=== PATIENT | male | born 1970 | race Caucasian/White ===

== ENCOUNTER 2019-02-23 18:32 | Inpatient (IN) ==
[2019-02-23] MEDS ORDERED: IOPAMIDOL 100 ML BOTTLE IV ONE (18:33)
[2019-02-23] MEDS ORDERED: PROMETHAZINE 25 MG/ML VIAL IV ONE ×2 (18:44→20:51)
[2019-02-23] MEDS ORDERED: 0.9 % SODIUM CHLORIDE 1,000 ML IV ONE ×2 (18:44→20:41)
[2019-02-23] MEDS ORDERED: ONDANSETRON 4 MG/2 ML VIAL IV ONE (19:43)
[2019-02-23 19:45] LABS: Basophils # (Auto) 0 K/mcL (0.0-0.3); Basophils % (Auto) 0.5 % (0.0-2.0); Eosinophils # (Auto) 0 K/mcL (0.0-0.7); Eosinophils % (Auto) 0.4 % (0.0-7.0); Granulocytes % (Auto) 80.4 % (38.0-78.0); Hematocrit 36.8 % (41.0-55.0); Hemoglobin 11.6 g/dL (13.5-16.5); Lymphocytes # (Auto) 0.8 K/mcL (1.5-4.8); Lymphocytes % (Auto) 10.3 % (15.5-49.0); Mean Cell Volume 73.9 fL (80.0-100.0); Mean Corpuscular HGB Conc 31.4 g/dL (31.0-36.0); Mean Platelet Volume 9.4 fL (7.4-10.4); Monocytes # (Auto) 0.7 K/mcL (0.1-0.9); Monocytes % (Auto) 8.4 % (1.0-12.0); Platelet Count 286 K/mcL (140-440); RBC 4.98 M/mcL (4.50-5.90); Red Cell Distribution Width 20.7 % (11.5-14.5); WBC 7.8 K/mcL (4.5-11.0)
[2019-02-23] MEDS: fentaNYL 100 MCG/2 ML VIAL IV PRN ×4 (19:50→20:56)
[2019-02-23 20:09] LABS: ALT/SGPT 17 U/l (0-40); AST/SGOT 25 U/l (0-37); Albumin 3.2 gm/dL (3.2-5.2); Albumin/Globulin Ratio 0.8 (1.0-2.3); Alkaline Phosphatase 106 U/L (39-117); Amylase 144 U/L (28-100); Bilirubin,Total 1.9 mg/dL (0.0-1.0); Blood Urea Nitrogen 9 mg/dl (6-20); Calcium 8.2 mg/dl (8.6-10.4); Carbon Dioxide 25 mmol/L (22-30); Chloride 97 mmol/L (96-108); Globulin 4.1 gm/dL (2.2-3.7); Glomerular Filtration Rate 87; Glucose 121 mg/dL (70-105); Lipase 454 U/L (7-60); Potassium 3.8 mmol/L (3.3-5.1); Sodium 135 mmol/L (133-145)
--- NOTE | 2019-02-23 20:18 | XRay Report ---
INDICATION: Abdominal pain, vomiting, diarrhea TECHNIQUE: AP chest x-ray,portable semiupright COMPARISON: CT scan dated 06/21/2018 FINDINGS:Left costophrenic angle is not included on this image. No acute or focal parenchymal infiltrate. No parenchymal mass. Heart size and vascularity are normal. No evidence for congestive heart failure. IMPRESSION: No acute abnormality Interpreted and Authenticated by: Kee Thornton 02/23/19
[2019-02-23 20:27] LABS: Erythrocyte Sedimentation Rate 17 mm/hr (0-15)
--- NOTE | 2019-02-23 20:54 | Emergency Department Note ---
Abdominal Pain HPI - General Chief Complaint: Abdominal Pain Stated Complaint: abd pain, vomiting, diarrhea Time Seen by Provider: 02/23/19 18:41 Source: patient, family Mode of arrival: ambulatory Limitations: no limitations - History of Present Illness HPI Narrative: 48-year-old male in ED with nausea for 4 days, vomiting and abdominal pain for the last 24 hours. Patient advises he has had no food or drink for the last 48 hours. And has not used alcohol in quite some time. Patient states he has sharp pain in his epigastric area which increases after vomiting. He also has crampy and stabbing pain which is intermittent when these spasms occur his pain jumps from a 6/10 to an 8/10. advises patient has had shortness of breath with exertion for the last 3-4 days and a 10 pound weight loss over the last week. Patient did have positive influenza 2 weeks ago, so that might be partial to the weight loss. Patient does have a history of pancreatitis. MD Complaint: abdominal pain Onset (ago): day(s) (1) Consistency: constant, intermittent (increases) Location: LUQ, RUQ, epigastric Severity scale (1-10): 8 Quality: cramping, stabbing, sharp Radiation: none Improves with: nothing Worsens with: vomiting Context: history of similar episodes Associated symptoms: Reports: nausea, vomiting, chills. Denies: diarrhea, fever, constipation, dysuria - Related Data Home Medications Medication Instructions Recorded Confirmed Venlafaxine HCl [Venlafaxine HCl 150 mg PO DAILY 11/27/18 02/24/19 ER] Docusate Sodium [Colace] 100 mg PO DAILY 02/23/19 02/24/19 Zolpidem [Ambien] 10 mg PO HS 02/23/19 02/24/19 Previous Rx's Medication Instructions Recorded ondansetron HCl 4 mg tablet 4 mg PO BID-TID PRN #30 tab 08/18/18 hydroxyzine HCl 50 mg tablet 50 mg PO BID PRN #60 tab 11/04/18 ropinirole 0.5 mg tablet 0.5 mg PO QHS #30 tab 11/16/18 Omeprazole 20 mg PO DAILY #90 tablet. 11/29/18 triamcinolone acetonide 0.5 % 1 applic TOPICAL BID #454 g 11/29/18 topical cream Allergies Allergy/AdvReac Type Severity Reaction Status Date / Time hydromorphone Allergy Mild itching Verified 02/23/19 18:32 hydrocodone AdvReac Mild Itching Verified 02/23/19 18:32 oxycodone AdvReac Mild Itching Verified 02/23/19 18:32 Review of Systems All systems ED: reviewed and negative except as stated. Abdominal Pain PMH - Past Medical History PMFSH Narrative: All Active Problems (Last Reviewed 02/23/19 @ 18:21 by Ludwin Rothman PA-C) Gastritis (Acute) Epigastric abdominal tenderness (Acute) Gastroenteritis (Acute) Pancreatitis (Chronic) Pulmonary embolism (Chronic) Pancreatic mass (Acute) Sprain of medial collateral ligament of right knee (Acute) Lateral epicondylitis of right elbow (Acute) Kidney stones (Chronic) Depression (Chronic) Anxiety (Chronic) Panic attack (Chronic) History of alcohol abuse (Chronic) History of essential hypertension (Chronic) Insomnia (Chronic) Generalized anxiety disorder (Chronic) Past Surgical History (Last Reviewed 02/23/19 @ 18:21 by Ludwin Rothman PA-C) H/O colonoscopy (Chronic) History of appendectomy (Chronic 07/01/18) Family History (Last Reviewed 02/23/19 @ 18:21 by Ludwin Rothman PA-C) Unknown No pertinent family history Medical history: Reports: kidney stones, pulmonary embolus, other (Pancreatitis) Psychiatric history: Reports: anxiety (With panic), panic disorder - Social History Smoking status: Never smoker Alcohol use: Reports: Heavy, Recent Physical Exam Limitations: no limitations General appearance: alert, in no apparent distress (pt does appear uncomfortable) Head: atraumatic, normocephalic, normal inspection, other (pt pale and slight jaundice) Eye: Present: normal appearance, PERRL, EOMI. Absent: conjunctival injection ENT: normal oropharynx, mucous membranes dry, TM's normal bilaterally, normal external ear exam Neck: Present: normal inspection, trachea midline. Absent: tenderness, lym phadenopathy Chest: Present: normal inspection, symmetric chest wall rise. Absent: tenderness Respiratory: Present: normal lung sounds bilaterally. Absent: respiratory distress, rales/crackles, wheezes Cardiovascular: Present: tachycardia. Absent: systolic murmur, diastolic murmur Abdominal: Present: soft, tenderness, normal bowel sounds. Absent: distention, guarding, rebound, rigidity Abdominal tenderness: Present: RUQ, LUQ, epigastrium, diffuse, moderate Extremities: Present: normal inspection. Absent: pedal edema Back: Present: normal inspection, CVA tenderness (R) Neurological: Present: alert, oriented X3, normal gait Psychiatric: Present: normal affect, normal mood. Absent: depressed, agitated, anxious, flat affect Skin: Present: warm, dry, intact, normal color. Absent: cool, diaphoretic Course Vital Signs Temperature 98.1 F 02/23/19 18:32 Pulse Rate 98 H 02/23/19 18:32 Respiratory Rate 22 02/23/19 18:32 Blood Pressure 146/104 02/23/19 18:32 Pulse Oximetry (%) 100 02/23/19 18:32 Temperature 98.2 F 02/24/19 06:55 Pulse Rate 93 H 02/24/19 04:08 Respiratory Rate 18 02/24/19 06:55 Blood Pressure 164/99 02/24/19 06:55 Pulse Oximetry (%) 100 02/24/19 08:00 Abdominal Pain - MDM Narrative Medical decision making narrative: Patient presented with vomiting and abdominal pain. Patient provided with total of 2 L normal saline, 25 mg IV promethazine provided which did help reduce nausea for short bit, 4 mg Zofran IV provided, total of 50 g fentanyl provided over an hour, an additional 25 mg promethazine provided his vomiting returned, pain is not controlled. Patient does have allergies to Dilaudid, hydrocodone, oxycodone he has used these in the past with hydroxyzine but still has severe itching which causes him a rash. WBC 7.8, RBC 4.98 Hgb 11.6 increased from 8.9 (in November), HCT 36.8, MCV 73.9, MCH 23.2, PT 13.0, INR 1, total bilirubin 1.9 increased from 0.9, AST 25 ALT 17 alkaline phosphatase 106, CRP 0.5, ESR 17, amylase 144 increased from 89, lipase 454 increased from 196. At the end of this providers shift, patient was still having uncontrolled nausea and vomiting. provided report as CT results were not back. advised to provide Reglan IV. - Lab Data Lab results reviewed: Yes I reviewed the patient's lab results. Result diagrams: 02/24/19 03:30 02/24/19 03:30 Lab Results 02/23/19 02/23/19 02/23/19 Range/Units 18:55 18:55 18:55 WBC 7.8 (4.5-11.0) K/mcL RBC 4.98 (4.50-5.90) M/mcL Hgb 11.6 L (13.5-16.5) g/dL Hct 36.8 L (41.0-55.0) % MCV 73.9 L (80.0-100.0) fL MCH 23.2 L (26.0-34.0) pg MCHC 31.4 (31.0-36.0) g/dL RDW 20.7 H (11.5-14.5) % Plt Count 286 (140-440) K/mcL MPV 9.4 (7.4-10.4) fL Gran % 80.4 H (38.0-78.0) % Lymph % (Auto) 10.3 L (15.5-49.0) % [place] % (Auto) 8.4 (1.0-12.0) % Eos % (Auto) 0.4 (0.0-7.0) % Baso % (Auto) 0.5 (0.0-2.0) % Gran # 6.3 (1.8-8.0) K/mcL Lymph # (Auto) 0.8 L (1.5-4.8) K/mcL [place] # (Auto) 0.7 (0.1-0.9) K/mcL Eos # (Auto) 0 (0.0-0.7) K/mcL Baso # (Auto) 0 (0.0-0.3) K/mcL ESR 17 H (0-15) mm/hr PT 13.0 (11.9-14.5) sec INR 1.0 (0.9-1.1) Sodium 135 (133-145) mmol/L Potassium 3.8 (3.3-5.1) mmol/L Chloride 97 (96-108) mmol/L Carbon Dioxide 25 (22-30) mmol/L Anion Gap 13.0 (8-16) BUN 9 (6-20) mg/dl Creatinine 1.0 (0.7-1.2) mg/dl GFR Calculation 87 Glucose 121 H (70-105) mg/dL Calcium 8.2 L (8.6-10.4) mg/dl Total Bilirubin 1.9 H (0.0-1.0) mg/dL Direct Bilirubin (0.0-0.3) mg/dL AST 25 (0-37) U/l ALT 17 (0-40) U/l Alkaline Phosphatase 106 (39-117) U/L Lactate Dehydrogenase (94-250) U/L C-Reactive Protein (0.0-0.8) mg/dl Total Protein 7.3 (5.9-8.4) gm/dL Albumin 3.2 (3.2-5.2) gm/dL Globulin 4.1 H (2.2-3.7) gm/dL Albumin/Globulin Ratio 0.8 L (1.0-2.3) Triglycerides (<150) mg/dl Amylase 144 H (28-100) U/L Lipase 454 H (7-60) U/L Ethyl Alcohol (<0.010) gm/dl 02/23/19 02/23/19 02/23/19 Range/Units 18:55 20:18 20:18 WBC (4.5-11.0) K/mcL RBC (4.50-5.90) M/mcL Hgb (13.5-16.5) g/dL Hct (41.0-55.0) % MCV (80.0-100.0) fL MCH (26.0-34.0) pg MCHC (31.0-36.0) g/dL RDW (11.5-14.5) % Plt Count (140-440) K/mcL MPV (7.4-10.4) fL Gran % (38.0-78.0) % Lymph % (Auto) (15.5-49.0) % [place] % (Auto) (1.0-12.0) % Eos % (Auto) (0.0-7.0) % Baso % (Auto) (0.0-2.0) % Gran # (1.8-8.0) K/mcL Lymph # (Auto) (1.5-4.8) K/mcL [place] # (Auto) (0.1-0.9) K/mcL Eos # (Auto) (0.0-0.7) K/mcL Baso # (Auto) (0.0-0.3) K/mcL ESR (0-15) mm/hr PT (11.9-14.5) sec INR (0.9-1.1) Sodium (133-145) mmol/L Potassium (3.3-5.1) mmol/L Chloride (96-108) mmol/L Carbon Dioxide (22-30) mmol/L Anion Gap (8-16) BUN (6-20) mg/dl Creatinine (0.7-1.2) mg/dl GFR Calculation Glucose (70-105) mg/dL Calcium (8.6-10.4) mg/dl Total Bilirubin (0.0-1.0) mg/dL Direct Bilirubin 0.4 H (0.0-0.3) mg/dL AST (0-37) U/l ALT (0-40) U/l Alkaline Phosphatase (39-117) U/L Lactate Dehydrogenase 226 (94-250) U/L C-Reactive Protein 0.5 (0.0-0.8) mg/dl Total Protein (5.9-8.4) gm/dL Albumin (3.2-5.2) gm/dL Globulin (2.2-3.7) gm/dL Albumin/Globulin Ratio (1.0-2.3) Triglycerides 70 (<150) mg/dl Amylase (28-100) U/L Lipase (7-60) U/L Ethyl Alcohol < 0.010 (<0.010) gm/dl - Radiology Data Radiology results reviewed: Yes I reviewed the patient's radiology results. Date of Service: 02/23/19 Procedure(s): CT abdomen pelvis w con Accession Number(s): [id number] CLINICAL INFORMATION: Pancreatitis COMPARISON: Previous examinations dated 08/16/2018 and 11/27/2018 Date of Service: 02/23/19 Procedure(s): XR chest 1V portable Accession Number(s): [id number] INDICATION: Abdominal pain, vomiting, diarrhea TECHNIQUE: AP chest x-ray,portable semiupright COMPARISON: CT scan dated 06/21/2018 FINDINGS:Left costophrenic angle is not included on this image. No acute or focal parenchymal infiltrate. No parenchymal mass. Heart size and vascularity are normal. No evidence for congestive heart failure. IMPRESSION: No acute abnormality CT Abd/pelvis with contrast: TECHNIQUE: Axial images were obtained through the abdomen and pelvis. Sagittally and coronally reformatted images. 80 mL contrast material injected intravenously. Oral contrast material was not given FINDINGS: Tiny adjacent cysts or pancreatitis. There is peripancreatic inflammatory change and minimal fluid. There is no pseudocyst. Pancreas is heterogeneous with areas of low density. Subtle changes of pancreatic necrosis are possible. Pancreatitis is slightly worse than on 11/27/2018 and worse than on 08/16/2018. There is no pancreatic abscess. No pancreatic gas. Lung bases are negative. No focal infiltrate or mass. There is no pleural fluid. No pericardial fluid. There is a small hiatal hernia. Liver is negative. There are surgical clips in the gallbladder fossa. Liver contour is smooth. No evidence for cirrhosis. There is no hepatic mass. Spleen is negative. No splenomegaly. Normal enhancement of splenic and portal veins. Negative adrenal glands. Kidneys are negative. No solid or cystic mass. No significant hydronephrosis. Patient has had a prior appendectomy. Colon is negative. No diverticulitis. No detectable colonic mass. No mechanical small bowel obstruction. No significant retroperitoneal or mesenteric adenopathy. There is no free pelvic fluid. There is no intra-abdominal abscess. There is no pneumoperitoneum, biliary or portal venous gas. Lumbar spine is negative. No compression deformities. Sacrum and pelvis are negative. Examination was initially interpreted by [facility] IMPRESSION: 1. Pancreatitis. Findings are somewhat worse than on 11/27/2018 2. Pancreas is edematous with areas of low density which may represent early pancreatic necrosis. No pseudocyst or focal abscess Disposition Pt seen by CUSTOMER CARE MANAGER/PA only: No (Scheduling Specialist) Clinical Impression: Pancreatitis Qualifiers: Chronicity: chronic Pancreatitis type: alcohol induced Qualified Code(s): K86.0 - Alcohol-induced chronic pancreatitis Disposition: Xfer As Inpt ([facility]) Condition: Good Time of Disposition: 10:01
[2019-02-23] MEDS ORDERED: LACTATED RINGERS 1,000 ML IV ONE (21:59)
[2019-02-23] MEDS ORDERED: METOCLOPRAMIDE 10 MG/2 ML VIAL IV ONE (22:21)
[2019-02-23 22:46] LABS: Alcohol, Blood < 10.0 mg/dL (<10); Alcohol,Blood < 0.010 gm/dl (<0.010)
[2019-02-23 23:37] LABS: Bilirubin,Direct 0.4 mg/dL (0.0-0.3)
--- NOTE | 2019-02-23 23:37 | Internal Med History&Physical ---
Medical - H&P: HPI Patient information: Note initiated : 02/23/19 at 11:35 pm Service Date, if different from initiated Date: [] Patient: Cy Joel 48 y/o M admitted on for abd pain, vomiting, diarrhea. Chief Complaint: [] History of present illness: Mr. Joel is a 48 year old M 48-year-old male with a history of pancreatitis related to alcohol use presents with 4-day history of nausea vomiting abdominal pain. Patient states last alcohol he believes was . He used to be a heavy drinker but is cut down. He usually has at least 4 bottles of wine a week still. States pain is sharp epigastric. States that had not had any food or drink for the past day or so. Pain is nonradiating at this time. In the ED labs were done including a lipase that was elevated. Has chills denies fever CT abdomen showing showing pancreatitis. Signs stable at this time. Initial heart rate noted to be 98 but subsequent rates after or 60s to 70s. Afebrile History of influenza 2 weeks ago. Review of Systems: Pertinent positives as above. Denies headache/fever/chest pain/cough/dyspn ea/diarrhea. Remaining 10 point review of systems reviewed negative Medical - H&P: PMH Medical history: Past medical history: pancreatitis (Chronic) Pulmonary embolism (Chronic) Pancreatic mass (Acute) Sprain of medial collateral ligament of right knee (Acute) Lateral epicondylitis of right elbow (Acute) Kidney stones (Chronic) Depression (Chronic) Anxiety (Chronic) Panic attack (Chronic) History of alcohol abuse (Chronic) History of essential hypertension (Chronic) Insomnia (Chronic) Generalized anxiety disorder (Chronic) Medical history: Reports: kidney stones, pulmonary embolus, other (Pancreatitis) Past Surgical History (Last Reviewed 02/23/19 @ 18:21 by Ludwin Rothman PA-C) History of appendectomy (Chronic 07/01/18) Cholecystectomy Family History (Last Reviewed 02/23/19 @ 18:21 by Ludwin Rothman PA-C) Mother is healthy Father had COPD Social history: States used to be a heavy drinker, now about 4 bottles of wine a week Denies tobacco use Lives with family Medical - H&P: Meds Home Medications Medication Instructions Recorded Confirmed Type ondansetron HCl 4 mg tablet 4 mg PO BID-TID PRN #30 tab 08/18/18 02/23/19 Rx hydroxyzine HCl 50 mg tablet 50 mg PO BID PRN #60 tab 11/04/18 02/23/19 Rx ropinirole 0.5 mg tablet 0.5 mg PO QHS #30 tab 11/16/18 02/23/19 Rx Venlafaxine HCl [Venlafaxine HCl 150 mg PO HS 11/27/18 02/23/19 History ER] Omeprazole 20 mg PO DAILY #90 tablet. 11/29/18 02/23/19 Rx triamcinolone acetonide 0.5 % 1 applic TOPICAL BID #454 g 11/29/18 02/23/19 Rx topical cream Docusate Sodium [Colace] 100 mg PO DAILY 02/23/19 02/23/19 History Zolpidem [Ambien] 10 mg PO DAILY 02/23/19 02/23/19 History Allergies Allergy/AdvReac Type Severity Reaction Status Date / Time hydromorphone Allergy Mild itching Verified 02/23/19 18:32 hydrocodone AdvReac Mild Itching Verified 02/23/19 18:32 oxycodone AdvReac Mild Itching Verified 02/23/19 18:32 Medical - H&P: Exam - Constitutional Vitals: Temp Pulse Resp BP Pulse Ox 98.1 F 78 18 162/92 98 02/23/19 18:32 02/23/19 23:29 02/23/19 20:12 02/23/19 23:01 02/23/19 23:29 Exam: General: Alert, Awake, mild physical to distress from pain, obese Eyes/N/T: EOMI, PEERL, DMM Head/Neck: neck supple, normocephalic atraumatic CV: RRR, No murmurs, normal s1/s2 Pulm: Clear b/l, no wheezing/rhonchi/rales Abd: soft, TTP epigastrium, decreased BS Ext: no clubbing/cyanosis/edema Neuro: Alert, no focal deficits, moves all extremities, CN 2-12 grossly intact, symmetrical strength b/l upper/lower, sensations intact b/l upper/lower Skin: warm/dry Medical - H&P: Reslt - Labs CBC & Chem 7: 02/23/19 18:55 02/23/19 18:55 Labs: Short CBC 02/23/19 Range/Units 18:55 WBC 7.8 (4.5-11.0) K/mcL Hgb 11.6 L (13.5-16.5) g/dL Hct 36.8 L (41.0-55.0) % Plt Count 286 (140-440) K/mcL BMP 02/23/19 18:55 Sodium 135 Potassium 3.8 Chloride 97 Carbon Dioxide 25 BUN 9 Creatinine 1.0 Glucose 121 H Calcium 8.2 L Liver Function 02/23/19 Range/Units 18:55 Total Bilirubin 1.9 H (0.0-1.0) mg/dL AST 25 (0-37) U/l ALT 17 (0-40) U/l Alkaline Phosphatase 106 (39-117) U/L Albumin 3.2 (3.2-5.2) gm/dL Medical - H&P: A/P - Narrative A/P Narrative: A: *Acute pancreatitis: -h/o cholecystectomy *Alcohol abuse : *HTN: *JENNY: *Obesity: *GERD: *Depression/anxiety with panic attacks: P: -IVF's -N.p.o., bowel rest tonight -Pain control, antiemetics -We will check triglyceride -Restart home iron supplementation when oral intake able -Monitor for signs of deterioration including leukocytosis fevers and other clinical signs of infection, would then need to repeat CAT scan looking for necrosis -ppx: Lovenox full code
[2019-02-24] MEDS ORDERED: fentaNYL 100 MCG/2 ML VIAL IV PRN (01:09)
[2019-02-24] MEDS ORDERED: diphenhydrAMINE 50 MG/ML VIAL ONE ×2 (01:26→05:26)
[2019-02-24] MEDS ORDERED: ONDANSETRON 4 MG/2 ML VIAL ONE ×2 (01:26→05:25)
[2019-02-24] MEDS ORDERED: HYDROmorphone 2 MG/ML VIAL ONE ×2 (01:26→05:25)
[2019-02-24] MEDS: 0.9 % SODIUM CHLORIDE 1,000 ML IV SCH ×6 (01:27→21:34)
[2019-02-24 04:07] LABS: Amphetamine Screen,Urine NONE DETECTED (NONDETECTED); Barbiturate Screen,Urine NONE DETECTED (NONDETECTED); Benzodiazepines Screen,Urine NONE DETECTED (NONDETECTED); Cannabinoid Screen,Urine SUSPECT POSITIVE (NONDETECTED); Cocaine Screen,Urine NONE DETECTED (NONDETECTED); Opiate Screen,Urine NONE DETECTED (NONDETECTED); Oxycodone, Urine Screen NONE DETECTED (NONDETECTED); Phencyclidine Screen,Urine NONE DETECTED (NONDETECTED)
[2019-02-24 04:09] LABS: Appearance,Urine CLEAR; Bilirubin,Urine NEG (NEG); Color,Urine YELLOW; Culture Indicated,Urine NO; Glucose,Urine (UA) NEGATIVE (NEG); Ketones,Urine 20 mg/dL (NEG); Leukocyte Esterase,Urine NEG /uL (NEG); Nitrate,Urine NEG (NEG); Protein,Urine NEG (NEG); Specific Gravity,Urine 1.057 (1.000-1.035); Urine Blood NEG mg/dL (<0.03); Urobilinogen,Urine NEG (NEG)
[2019-02-24 05:34] LABS: Basophils # (Auto) 0 K/mcL (0.0-0.3); Basophils % (Auto) 0.1 % (0.0-2.0); Eosinophils # (Auto) 0 K/mcL (0.0-0.7); Eosinophils % (Auto) 0 % (0.0-7.0); Granulocytes % (Auto) 79.9 % (38.0-78.0); Hemoglobin 9.7 g/dL (13.5-16.5); Lymphocytes # (Auto) 0.8 K/mcL (1.5-4.8); Lymphocytes % (Auto) 9.9 % (15.5-49.0); Mean Cell Volume 75.4 fL (80.0-100.0); Mean Corpuscular HGB Conc 31.3 g/dL (31.0-36.0); Mean Platelet Volume 9.8 fL (7.4-10.4); Monocytes # (Auto) 0.8 K/mcL (0.1-0.9); Monocytes % (Auto) 10.1 % (1.0-12.0); Platelet Count 209 K/mcL (140-440); RBC 4.11 M/mcL (4.50-5.90); Red Cell Distribution Width 22.7 % (11.5-14.5); WBC 7.9 K/mcL (4.5-11.0)
--- NOTE | 2019-02-24 06:09 | Cat Scan Report ---
CLINICAL INFORMATION: Pancreatitis COMPARISON: Previous examinations dated 08/16/2018 and 11/27/2018 TECHNIQUE: Axial images were obtained through the abdomen and pelvis. Sagittally and coronally reformatted images. 80 mL contrast material injected intravenously. Oral contrast material was not given FINDINGS: Tiny adjacent cysts or pancreatitis. There is peripancreatic inflammatory change and minimal fluid. There is no pseudocyst. Pancreas is heterogeneous with areas of low density. Subtle changes of pancreatic necrosis are possible. Pancreatitis is slightly worse than on 11/27/2018 and worse than on 08/16/2018. There is no pancreatic abscess. No pancreatic gas. Lung bases are negative. No focal infiltrate or mass. There is no pleural fluid. No pericardial fluid. There is a small hiatal hernia. Liver is negative. There are surgical clips in the gallbladder fossa. Liver contour is smooth. No evidence for cirrhosis. There is no hepatic mass. Spleen is negative. No splenomegaly. Normal enhancement of splenic and portal veins. Negative adrenal glands. Kidneys are negative. No solid or cystic mass. No significant hydronephrosis. Patient has had a prior appendectomy. Colon is negative. No diverticulitis. No detectable colonic mass. No mechanical small bowel obstruction. No significant retroperitoneal or mesenteric adenopathy. There is no free pelvic fluid. There is no intra-abdominal abscess. There is no pneumoperitoneum, biliary or portal venous gas. Lumbar spine is negative. No compression deformities. Sacrum and pelvis are negative. Examination was initially interpreted by [facility] IMPRESSION: 1. Pancreatitis. Findings are somewhat worse than on 11/27/2018 2. Pancreas is edematous with areas of low density which may represent early pancreatic necrosis. No pseudocyst or focal abscess The exam was performed using radiation dose optimization techniques including, but not limited to, automated exposure control, adjustment of the mA and/or kV according to patient size and use of iterative reconstruction technique. Interpreted and Authenticated by: Kee Thornton 02/24/19
[2019-02-24] MEDS ORDERED: POTASSIUM CHLORIDE 20 MEQ TABLET PO PRN ×2 (06:55)
[2019-02-24] MEDS ORDERED: MAGNESIUM SULFATE 2 GM/50 ML BAG IV PRN (06:55)
[2019-02-24] MEDS ORDERED: IPRATROPIUM/ALBUTEROL 3 ML AMPUL.NEB NEB PRN (06:55)
[2019-02-24] MEDS ORDERED: PROMETHAZINE 12.5 MG SUPP.RECT PR PRN (06:55)
[2019-02-24] MEDS ORDERED: PROCHLORPERAZINE 10 MG/2 ML VIAL IV PRN (06:55)
[2019-02-24] MEDS ORDERED: ONDANSETRON 4 MG/2 ML VIAL IV PRN (06:55)
[2019-02-24] MEDS ORDERED: POTASSIUM CHLORIDE 40 MEQ in DEXTROSE 5% IN WATER 500 ML IV PRN (06:55)
[2019-02-24] MEDS ORDERED: ACETAMINOPHEN 325 MG TABLET PO PRN (06:55)
--- NOTE | 2019-02-24 06:55 | Internal Med Progress Note ---
Medical - PN: Subj Patient information: Note initiated : 02/24/19 at 6:49 am Service Date, if different from initiated Date: [] Patient: Cy Joel a 48 y/o M admitted on 02/24/19 for abd pain, vomiting, diarrhea. Chief Complaint: [] Interval history: Mr. Joel is a 48 year old M 48-year-old male with a history of pancreatitis related to alcohol use presents with 4-day history of nausea vomiting abdominal pain. Patient states last alcohol he believes was . He used to be a heavy drinker but is cut down. He usually has at least 4 bottles of wine a week still. States pain is sharp epigastric. States that had not had any food or drink for the past day or so. Pain is nonradiating at this time. In the ED labs were done including a lipase that was elevated. Has chills denies fever CT abdomen showing showing pancreatitis. Signs stable at this time. Initial heart rate noted to be 98 but subsequent rates after or 60s to 70s. Afebrile History of influenza 2 weeks ago. 02/24 Was able to get some sleep last night. Abdominal pain present but much improved from last night. Has some nausea and some retching overnight. Nothing this morning. No other complaints Review of Systems: denies headache/fever/chills/vomiting/chest pain/cough/dyspnea/diarrhea. Otherwise see above. - Constitutional Vitals: Vital Signs Temp Pulse Resp BP Pulse Ox 99.7 F H 93 H 20 161/96 96 02/24/19 03:49 02/24/19 04:08 02/24/19 03:49 02/24/19 03:49 02/24/19 04:08 Period Temp Pulse Resp BP Sys/Tracey Pulse Ox Last 24 Hr 98.1 F-99.7 F 60-98 16-22 143-169/81-104 90-100 Intake and Output 02/23/19 02/24/19 02/24/19 21:59 05:59 13:59 Intake Total 1999 1999 Output Total 325 Balance 1999 1675 Weight 107.955 kg 110.314 kg Intake & Output: Intake & Output 02/23/19 02/24/19 02/24/19 21:59 05:59 13:59 Intake Total 1999 1999 Output Total 325 Balance 1999 1675 Weight 107.955 kg 110.314 kg Intake: IV 1999 1999 Sodium Chloride 0.9% 1,000 ml @ 2000 1000 250 mls/hr IV .Q4H [facility] Rx#: [id number] Lactated Ringers 1,000 ml @ 1000 Wide Open IV BOLUS ONE Rx#: [id number] Output: Void Amount 325 Other: Urine Color Dark Yellow Urine Odor Strong Exam: General: Alert, Awake, no acute distress, obese Eyes/N/T: EOMI, Head/Neck: neck supple, CV: RRR, No murmurs, Pulm: Clear b/l, no wheezing/rhonchi/rales Abd: soft, TTP epigastrium, + BS Ext: no clubbing/cyanosis/edema Neuro: Alert, no focal deficits, moves all extremities, Skin: warm/dry Medical - PN: Obj Da - Labs CBC & Chem 7: 02/24/19 03:30 02/24/19 03:30 Labs: Abnormal Lab Results 02/24/19 02/24/19 02/24/19 03:30 03:00 03:00 RBC 4.11 L Hgb 9.7 L Hct 31.0 L MCV 75.4 L MCH 23.6 L RDW 22.7 H Gran % 79.9 H Lymph % (Auto) 9.9 L Lymph # (Auto) 0.8 L ESR Glucose Calcium Total Bilirubin Direct Bilirubin Globulin Albumin/Globulin Ratio Amylase Lipase Ur Specific [place] 1.057 H Urine Ketones 20 A U Marijuana (THC) Screen Suspect positive A 02/23/19 02/23/19 02/23/19 20:18 18:55 18:55 RBC Hgb 11.6 L Hct 36.8 L MCV 73.9 L MCH 23.2 L RDW 20.7 H Gran % 80.4 H Lymph % (Auto) 10.3 L Lymph # (Auto) 0.8 L ESR 17 H Glucose 121 H Calcium 8.2 L Total Bilirubin 1.9 H Direct Bilirubin 0.4 H Globulin 4.1 H Albumin/Globulin Ratio 0.8 L Amylase 144 H Lipase 454 H Ur Specific [place] Urine Ketones U Marijuana (THC) Screen Meds: Medications Diphenhydramine HCl (Benadryl) 25 mg IV Q4HP PRN PRN Reason: Allergic Symptoms Enoxaparin Sodium (Lovenox) 40 mg SQ ONCE ONE Stop: 02/24/19 09:01 Famotidine (Pepcid) 20 mg IV Q12 [facility] Fentanyl (Sublimaze) 25 - 50 mcg IV Q2HP PRN PRN Reason: PAIN LEVEL > 6 Hydromorphone HCl (Dilaudid) 0.5 - 1 mg IV Q2HP PRN PRN Reason: PAIN LEVEL > 6 Sodium Chloride (Sodium Chloride 0.9%) 1,000 mls @ 250 mls/hr IV .Q4H [facility] Last Admin: 02/24/19 05:38 Dose: 250 mls/hr Documented by: Ondansetron HCl (Zofran) 4 mg IV Q4HP PRN PRN Reason: Nausea And Vomiting Medical - PN: A/P - Time Spent With Patient Total time spent is greater than 50% in coordination of care (as documented) at patient's floor/unit and/or counseling patient: - Narrative A/P Narrative: A: *Acute pancreatitis: improving -h/o cholecystectomy -CT a/p with pancreatitis and possible small area of early necrosis *Alcohol abuse: *HTN: *JENNY: Has not been taking his home iron supplementation *Obesity: *GERD: *Depression/anxiety with panic attacks: P: -IVF's -start clears for lunch -Pain control, antiemetics -Monitor for signs of deterioration including leukocytosis fevers and other clinical signs of infection, would then need to repeat CAT scan looking for necrosis -switch his home omeprazole to pepcid given class 1b risk for pancreatitis with omeprazole -Alcohol cessation counseling -Restart home iron supplementation when oral intake able -CIWA -ppx: Lovenox full code Medical - PN: Qual - VTE Deep Vein Thrombosis/Pulmonary Embolism Present on Admission: No
[2019-02-24 07:07] LABS: ALT/SGPT 12 U/l (0-40); AST/SGOT 33 U/l (0-37); Albumin 2.5 gm/dL (3.2-5.2); Albumin/Globulin Ratio 0.7 (1.0-2.3); Alkaline Phosphatase 88 U/L (39-117); Bilirubin,Direct 0.3 mg/dL (0.0-0.3); Bilirubin,Total 1.2 mg/dL (0.0-1.0); Blood Urea Nitrogen 7 mg/dl (6-20); Calcium 7.4 mg/dl (8.6-10.4); Carbon Dioxide 22 mmol/L (22-30); Chloride 104 mmol/L (96-108); Globulin 3.6 gm/dL (2.2-3.7); Glomerular Filtration Rate 104; Glucose 103 mg/dL (70-105); Lactate Dehydrogenase 260 U/L (94-250); Lipase 251 U/L (7-60); Magnesium 1.8 mg/dL (1.6-2.5); Phosphorous 4.1 mg/dL (2.7-4.5); Potassium 4.2 mmol/L (3.3-5.1); Sodium 137 mmol/L (133-145); Triglycerides 52 mg/dl (<150); Uric Acid 4.5 mg/dL (2.5-8.0)
[2019-02-24] MEDS ORDERED: ENOXAPARIN 40 MG/0.4 ML SYRINGE SQ ONE (09:00)
[2019-02-24] MEDS: FAMOTIDINE/PF 20 MG/2 ML VIAL IV SCH ×2 (09:41→22:48)
[2019-02-24] MEDS: diphenhydrAMINE 50 MG/ML VIAL IV PRN ×3 (09:41→22:50)
[2019-02-24] MEDS: FOLIC ACID 1 MG TABLET PO SCH (09:41)
[2019-02-24] MEDS: VENLAFAXINE 150 MG CAP.XL.24H PO SCH (09:42)
[2019-02-24] MEDS: HYDROmorphone 2 MG/ML VIAL IV PRN ×4 (09:45→22:50)
[2019-02-24] MEDS: ONDANSETRON 4 MG/2 ML VIAL IV PRN ×4 (09:49→22:50)
[2019-02-24] MEDS: THIAMINE 100 MG in 0.9 % SODIUM CHLORIDE 50 ML IV SCH (09:56)
[2019-02-24] MEDS: 0.9 % SODIUM CHLORIDE 10 ML SYRINGE IV SCH ×2 (14:24→22:49)
[2019-02-24] MEDS: TRIAMCINOLONE CRM 0.5% TUBE 15GM TOPICAL SCH ×2 (16:02→22:48)
[2019-02-24] MEDS ORDERED: ENALAPRILAT 1.25 MG/ML VIAL IV PRN (17:58)
[2019-02-24] MEDS: LABETALOL 5 MG/ML ML IV PRN (18:55)
[2019-02-24] MEDS ORDERED: rOPINIRole 0.25 MG TABLET PO SCH (21:00)
[2019-02-24] MEDS ORDERED: ZOLPIDEM 5 MG TABLET PO SCH (21:00)
[2019-02-25] MEDS: LABETALOL 5 MG/ML ML IV PRN (04:07)
[2019-02-25] MEDS: ONDANSETRON 4 MG/2 ML VIAL IV PRN ×2 (04:08→22:04)
[2019-02-25] MEDS: HYDROmorphone 2 MG/ML VIAL IV PRN ×4 (04:08→22:04)
[2019-02-25] MEDS: diphenhydrAMINE 50 MG/ML VIAL IV PRN ×3 (04:09→21:28)
[2019-02-25] MEDS: 0.9 % SODIUM CHLORIDE 10 ML SYRINGE IV SCH ×3 (05:54→21:29)
[2019-02-25 06:42] LABS: Basophils # (Auto) 0 K/mcL (0.0-0.3); Basophils % (Auto) 0.7 % (0.0-2.0); Eosinophils # (Auto) 0.2 K/mcL (0.0-0.7); Eosinophils % (Auto) 3.4 % (0.0-7.0); Granulocytes % (Auto) 58.6 % (38.0-78.0); Hematocrit 29.8 % (41.0-55.0); Hemoglobin 9.6 g/dL (13.5-16.5); Lymphocytes # (Auto) 1.5 K/mcL (1.5-4.8); Lymphocytes % (Auto) 24.4 % (15.5-49.0); Mean Cell Volume 74.3 fL (80.0-100.0); Mean Platelet Volume 10.6 fL (7.4-10.4); Monocytes # (Auto) 0.8 K/mcL (0.1-0.9); Monocytes % (Auto) 12.9 % (1.0-12.0); Platelet Count 183 K/mcL (140-440); RBC 4.02 M/mcL (4.50-5.90); Red Cell Distribution Width 20.6 % (11.5-14.5); WBC 6.1 K/mcL (4.5-11.0)
[2019-02-25 06:44] LABS: ALT/SGPT 12 U/l (0-40); AST/SGOT 24 U/l (0-37); Albumin 2.7 gm/dL (3.2-5.2); Albumin/Globulin Ratio 0.8 (1.0-2.3); Alkaline Phosphatase 83 U/L (39-117); Bilirubin,Direct 0.3 mg/dL (0.0-0.3); Bilirubin,Total 0.9 mg/dL (0.0-1.0); Blood Urea Nitrogen 5 mg/dl (6-20); Calcium 7.6 mg/dl (8.6-10.4); Carbon Dioxide 20 mmol/L (22-30); Chloride 104 mmol/L (96-108); Globulin 3.5 gm/dL (2.2-3.7); Glomerular Filtration Rate 110; Glucose 76 mg/dL (70-105); Lactate Dehydrogenase 254 U/L (94-250); Lipase 153 U/L (7-60); Magnesium 1.8 mg/dL (1.6-2.5); Potassium 3.7 mmol/L (3.3-5.1); Sodium 138 mmol/L (133-145); Triglycerides 68 mg/dl (<150); Uric Acid 3.8 mg/dL (2.5-8.0)
[2019-02-25] MEDS: 0.9 % SODIUM CHLORIDE 1,000 ML IV SCH (07:07)
--- NOTE | 2019-02-25 08:03 | Internal Med Progress Note ---
Medical - PN: Subj Patient information: Note initiated : 02/25/19 at 7:59 am Service Date, if different from initiated Date: [] Patient: Cy Joel 48 y/o M admitted on 02/24/19 for abd pain, vomiting, diarrhea. Chief Complaint: [] Interval history: Mr. Joel is a 48 year old M 48-year-old male with a history of pancreatitis related to alcohol use presents with 4-day history of nausea vomiting abdominal pain. Patient states last alcohol he believes was . He used to be a heavy drinker but is cut down. He usually has at least 4 bottles of wine a week still. States pain is sharp epigastric. States that had not had any food or drink for the past day or so. Pain is nonradiating at this time. In the ED labs were done including a lipase that was elevated. Has chills denies fever CT abdomen showing showing pancreatitis. Signs stable at this time. Initial heart rate noted to be 98 but subsequent rates after or 60s to 70s. Afebrile History of influenza 2 weeks ago. 02/24 Was able to get some sleep last night. Abdominal pain present but much improved from last night. Has some nausea and some retching overnight. Nothing this morning. No other complaints 02/25 Slept well last night. Abdominal pain is continued to improve. It did get a little worse with breakfast this morning on clear liquids and then improved thereafter. No nausea this morning. Does have mild headache. 7 elevated blood pressures while here likely combination of pain and aggressive IV fluids. However he did say he is on atenolol in the past but then went off as his blood pressure was fine. His blood pressure typically is in 130s. Review of Systems: denies fever/chills/vomiting/chest pain/cough/dyspnea/diarrhea. Otherwise see above. - Constitutional Vitals: Vital Signs Temp Pulse Resp BP Pulse Ox 99 F 73 18 148/94 99 02/24/19 18:45 02/24/19 23:52 02/24/19 18:45 02/24/19 23:52 02/24/19 23:52 Period Temp Pulse Resp BP Sys/Tracey Pulse Ox Last 24 Hr 98.7 F-99.6 F 59-85 16-20 144-172/85-103 95-100 Intake and Output 02/24/19 02/25/19 02/25/19 21:59 05:59 13:59 Intake Total 2247 90 953 Output Total 625 Balance 1622 90 953 Weight 114.305 kg Intake & Output: Intake & Output 02/24/19 02/25/19 02/25/19 21:59 05:59 13:59 Intake Total 2247 90 953 Output Total 625 Balance 1622 90 953 Weight 114.305 kg Intake: IV 1817 953 Sodium Chloride 0.9% 1,000 ml @ 1455 953 100 mls/hr IV .Q10H [facility] Rx#: [id number] Oral 430 90 Output: Void Amount 625 Other: Urine Appearance Clear Urine Color Dark Yellow Exam: General: Alert, Awake, no acute distress, obese Eyes/N/T: EOMI, Head/Neck: neck supple, CV: RRR, No murmurs, Pulm: Clear b/l, no wheezing/rhonchi/rales Abd: soft, TTP epigastrium improving, + BS Ext: no clubbing/cyanosis, trace b/l LE edema Neuro: Alert, no focal deficits, moves all extremities, Skin: warm/dry Medical - PN: Obj Da - Labs CBC & Chem 7: 02/25/19 03:50 02/25/19 03:50 Labs: Abnormal Lab Results 02/25/19 02/25/19 02/25/19 03:50 03:50 03:50 RBC 4.02 L Hgb 9.6 L Hct 29.8 L MCV 74.3 L MCH 23.8 L RDW 20.6 H MPV 10.6 H Gran % Lymph % (Auto) [place] % (Auto) 12.9 H Lymph # (Auto) ESR Carbon Dioxide 20 L BUN 5 L Glucose Calcium 7.6 L Total Bilirubin Direct Bilirubin Lactate Dehydrogenase 254 H Albumin 2.7 L Globulin Albumin/Globulin Ratio 0.8 L Amylase Lipase 153 H Ur Specific [place] Urine Ketones U Marijuana (THC) Screen 02/24/19 02/24/19 02/24/19 03:30 03:30 03:00 RBC 4.11 L Hgb 9.7 L Hct 31.0 L MCV 75.4 L MCH 23.6 L RDW 22.7 H MPV Gran % 79.9 H Lymph % (Auto) 9.9 L [place] % (Auto) Lymph # (Auto) 0.8 L ESR Carbon Dioxide BUN Glucose Calcium 7.4 L Total Bilirubin 1.2 H Direct Bilirubin Lactate Dehydrogenase 260 H Albumin 2.5 L Globulin Albumin/Globulin Ratio 0.7 L Amylase Lipase 251 H Ur Specific [place] 1.057 H Urine Ketones 20 A U Marijuana (THC) Screen 02/24/19 02/23/19 02/23/19 03:00 20:18 18:55 RBC Hgb Hct MCV MCH RDW MPV Gran % Lymph % (Auto) [place] % (Auto) Lymph # (Auto) ESR Carbon Dioxide BUN Glucose 121 H Calcium 8.2 L Total Bilirubin 1.9 H Direct Bilirubin 0.4 H Lactate Dehydrogenase Albumin Globulin 4.1 H Albumin/Globulin Ratio 0.8 L Amylase 144 H Lipase 454 H Ur Specific [place] Urine Ketones U Marijuana (THC) Screen Suspect positive A 02/23/19 18:55 RBC Hgb 11.6 L Hct 36.8 L MCV 73.9 L MCH 23.2 L RDW 20.7 H MPV Gran % 80.4 H Lymph % (Auto) 10.3 L [place] % (Auto) Lymph # (Auto) 0.8 L ESR 17 H Carbon Dioxide BUN Glucose Calcium Total Bilirubin Direct Bilirubin Lactate Dehydrogenase Albumin Globulin Albumin/Globulin Ratio Amylase Lipase Ur Specific [place] Urine Ketones U Marijuana (THC) Screen Meds: Medications Acetaminophen (Tylenol) 650 mg PO Q6HP PRN PRN Reason: PAIN/FEVER > 101 Albuterol/Ipratropium (Duoneb) 3 ml NEB Q4HP PRN PRN Reason: Shortness Of Breath Diphenhydramine HCl (Benadryl) 25 mg IV Q4HP PRN PRN Reason: Allergic Symptoms Last Admin: 02/25/19 04:09 Dose: 25 mg Documented by: Enalaprilat (Vasotec) 0 mg IV Q2HP PRN PRN Reason: Hypertension Famotidine (Pepcid) 20 mg IV Q12 [facility] Last Admin: 02/24/19 22:48 Dose: 20 mg Documented by: Fentanyl (Sublimaze) 25 - 50 mcg IV Q2HP PRN PRN Reason: PAIN LEVEL > 6 Folic Acid (Folic Acid) 1 mg PO DAILY [facility] Last Admin: 02/24/19 09:41 Dose: 1 mg Documented by: Hydromorphone HCl (Dilaudid) 0.5 - 1 mg IV Q2HP PRN PRN Reason: PAIN LEVEL > 6 Last Admin: 02/25/19 04:08 Dose: 0.5 mg Documented by: Potassium Chloride 40 meq/ (Dextrose) 520 mls @ 130 mls/hr IV UD PRN PRN Reason: Potassium < 3 Magnesium Sulfate (Magnesium Sulfate) 2 gm in 50 mls @ 50 mls/hr IV UD PRN PRN Reason: Magnesium </= 1.6 Thiamine HCl 100 mg/ Sodium (Chloride) 51 mls @ 50 mls/hr IV DAILY [facility] Last Infusion: 02/24/19 11:00 Dose: Infused Documented by: Sodium Chloride (Sodium Chloride 0.9%) 1,000 mls @ 100 mls/hr IV .Q10H [facility] Last Admin: 02/25/19 07:07 Dose: 100 mls/hr Documented by: Labetalol HCl (Trandate) 0 mg IV Q2HP PRN PRN Reason: Hypertension Last Admin: 02/25/19 04:07 Dose: 10 mg Documented by: Ondansetron HCl (Zofran) 4 mg IV Q4HP PRN PRN Reason: Nausea And Vomiting Last Admin: 02/25/19 04:08 Dose: 4 mg Documented by: Potassium Chloride (Kdur) 40 meq PO UD PRN PRN Reason: Potssium is 3-3.5 Potassium Chloride (Kdur) 40 meq PO UD PRN PRN Reason: Potassium < 3 Prochlorperazine (Compazine) 10 mg IV Q6HP PRN PRN Reason: Nausea And Vomiting Promethazine HCl (Phenergan) 12.5 mg [place] Q6HP PRN PRN Reason: Pain Ropinirole HCl (Requip) 0.5 mg PO HS [facility] Last Admin: 02/24/19 22:49 Dose: 0.5 mg Documented by: Sodium Chloride (Saline Flush) 10 ml IV Q8 [facility] Last Admin: 02/25/19 05:54 Dose: Not Given Documented by: Triamcinolone Acetonide (Kenalog Crm 0.5%) 1 dose TOPICAL BID [facility] Last Admin: 02/24/19 22:48 Dose: 1 dose Documented by: Venlafaxine HCl (Effexor Xr) 150 mg PO DAILY [facility] Last Admin: 02/24/19 09:42 Dose: 150 mg Documented by: Zolpidem Tartrate (Ambien) 10 mg PO [facility] Last Admin: 02/24/19 22:49 Dose: 10 mg Documented by: Medical - PN: A/P - Time Spent With Patient Total time spent is greater than 50% in coordination of care (as documented) at patient's floor/unit and/or counseling patient: - Narrative A/P Narrative: A: *Acute pancreatitis: improving -h/o cholecystectomy -CT a/p with pancreatitis and possible small area of early necrosis *Alcohol abuse: *HTN: *JENNY: Has not been taking his home iron supplementation *Obesity: *GERD: *Depression/anxiety with panic attacks: P: -IVF's -cont clears liquid for now, will consider Full with dinner -Pain control, antiemetics -Monitor for signs of deterioration including leukocytosis fevers and other clinical signs of infection, would then need to repeat CAT scan looking for necrosis -switch his home omeprazole to pepcid given class 1b risk for pancreatitis with omeprazole -Alcohol cessation counseling -Restart home iron supplementation when oral intake able -CIWA -start norvasc -ppx: Lovenox full code Medical - PN: Qual - VTE Deep Vein Thrombosis/Pulmonary Embolism Present on Admission: No
[2019-02-25] MEDS ORDERED: LACTATED RINGERS 1,000 ML IV SCH (08:30)
[2019-02-25] MEDS: THIAMINE 100 MG in 0.9 % SODIUM CHLORIDE 50 ML IV SCH ×2 (08:43→08:59)
[2019-02-25] MEDS: VENLAFAXINE 150 MG CAP.XL.24H PO SCH ×2 (08:44→08:57)
[2019-02-25] MEDS: FOLIC ACID 1 MG TABLET PO SCH ×2 (08:44→08:58)
[2019-02-25] MEDS: TRIAMCINOLONE CRM 0.5% TUBE 15GM TOPICAL SCH ×3 (08:44→22:44)
[2019-02-25] MEDS: FAMOTIDINE/PF 20 MG/2 ML VIAL IV SCH ×3 (08:44→21:28)
[2019-02-25] MEDS ORDERED: PROMETHAZINE 12.5 MG SUPP.RECT PR PRN (08:55)
[2019-02-25] MEDS ORDERED: IPRATROPIUM/ALBUTEROL 3 ML AMPUL.NEB NEB PRN (08:55)
[2019-02-25] MEDS ORDERED: diphenhydrAMINE 50 MG/ML VIAL IV PRN (08:55)
[2019-02-25] MEDS ORDERED: ENALAPRILAT 1.25 MG/ML VIAL IV PRN (08:55)
[2019-02-25] MEDS ORDERED: PROCHLORPERAZINE 10 MG/2 ML VIAL IV PRN (08:55)
[2019-02-25] MEDS ORDERED: POTASSIUM CHLORIDE 20 MEQ TABLET PO PRN ×2 (08:55)
[2019-02-25] MEDS ORDERED: LABETALOL 5 MG/ML ML IV PRN (08:55)
[2019-02-25] MEDS ORDERED: ACETAMINOPHEN 325 MG TABLET PO PRN (08:55)
[2019-02-25] MEDS ORDERED: MAGNESIUM SULFATE 2 GM/50 ML BAG IV PRN (08:55)
[2019-02-25] MEDS ORDERED: POTASSIUM CHLORIDE 40 MEQ in DEXTROSE 5% IN WATER 500 ML IV PRN (08:55)
[2019-02-25] MEDS: amLODIPine 5 MG TABLET PO SCH (08:58)
[2019-02-25] MEDS ORDERED: amLODIPine 5 MG TABLET PO SCH (09:00)
[2019-02-25] MEDS ORDERED: LORazepam 2 MG/ML VIAL IV PRN (10:36)
[2019-02-25] MEDS: fentaNYL 100 MCG/2 ML VIAL IV PRN ×2 (12:51→16:01)
[2019-02-25] MEDS: hydrOXYzine 25 MG TABLET PO PRN ×2 (12:56→17:45)
[2019-02-25] MEDS: LACTATED RINGERS 1,000 ML IV SCH ×2 (12:58→21:26)
[2019-02-25] MEDS ORDERED: ENOXAPARIN 40 MG/0.4 ML SYRINGE SQ ONE (13:46)
[2019-02-25] MEDS: LORazepam 2 MG/ML VIAL IV PRN (18:03)
[2019-02-25] MEDS: ZOLPIDEM 5 MG TABLET PO SCH (21:27)
[2019-02-25] MEDS: rOPINIRole 0.25 MG TABLET PO SCH (21:28)
[2019-02-26] MEDS: diphenhydrAMINE 50 MG/ML VIAL IV PRN ×4 (03:27→21:45)
[2019-02-26] MEDS: HYDROmorphone 2 MG/ML VIAL IV PRN ×5 (03:27→20:13)
[2019-02-26] MEDS: 0.9 % SODIUM CHLORIDE 10 ML SYRINGE IV SCH ×3 (05:35→20:15)
[2019-02-26 06:08] LABS: Basophils # (Auto) 0 K/mcL (0.0-0.3); Basophils % (Auto) 0.6 % (0.0-2.0); Eosinophils # (Auto) 0.1 K/mcL (0.0-0.7); Eosinophils % (Auto) 3.4 % (0.0-7.0); Granulocytes % (Auto) 59.4 % (38.0-78.0); Hematocrit 26.8 % (41.0-55.0); Hemoglobin 8.4 g/dL (13.5-16.5); Lymphocytes % (Auto) 24.1 % (15.5-49.0); Mean Cell Volume 75.6 fL (80.0-100.0); Mean Corpuscular HGB Conc 31.4 g/dL (31.0-36.0); Mean Platelet Volume 9.4 fL (7.4-10.4); Monocytes # (Auto) 0.5 K/mcL (0.1-0.9); Monocytes % (Auto) 12.5 % (1.0-12.0); Platelet Count 171 K/mcL (140-440); RBC 3.55 M/mcL (4.50-5.90); Red Cell Distribution Width 22.7 % (11.5-14.5)
[2019-02-26 06:18] LABS: Lipase 113 U/L (7-60)
[2019-02-26 06:20] LABS: ALT/SGPT 16 U/l (0-40); AST/SGOT 38 U/l (0-37); Albumin 2.1 gm/dL (3.2-5.2); Albumin/Globulin Ratio 0.6 (1.0-2.3); Alkaline Phosphatase 135 U/L (39-117); Bilirubin,Direct 0.2 mg/dL (0.0-0.3); Bilirubin,Total 0.8 mg/dL (0.0-1.0); Blood Urea Nitrogen 2 mg/dl (6-20); Calcium 7.6 mg/dl (8.6-10.4); Carbon Dioxide 25 mmol/L (22-30); Chloride 104 mmol/L (96-108); Globulin 3.4 gm/dL (2.2-3.7); Glomerular Filtration Rate 117; Glucose 99 mg/dL (70-105); Lactate Dehydrogenase 233 U/L (94-250); Magnesium 1.7 mg/dL (1.6-2.5); Phosphorous 2.8 mg/dL (2.7-4.5); Potassium 3.6 mmol/L (3.3-5.1); Sodium 139 mmol/L (133-145); Triglycerides 62 mg/dl (<150); Uric Acid 4.1 mg/dL (2.5-8.0)
[2019-02-26] MEDS: LACTATED RINGERS 1,000 ML IV SCH (07:58)
[2019-02-26] MEDS: ONDANSETRON 4 MG/2 ML VIAL IV PRN (07:58)
--- NOTE | 2019-02-26 08:05 | Internal Med Progress Note ---
Medical - PN: Subj Patient information: Note initiated : 02/26/19 at 8:03 am Service Date, if different from initiated Date: [] Patient: Cy Joel 48 y/o M admitted on 02/24/19 for abd pain, vomiting, diarrhea. Chief Complaint: [] Interval history: Mr. Joel is a 48 year old M 48-year-old male with a history of pancreatitis related to alcohol use presents with 4-day history of nausea vomiting abdominal pain. Patient states last alcohol he believes was . He used to be a heavy drinker but is cut down. He usually has at least 4 bottles of wine a week still. States pain is sharp epigastric. States that had not had any food or drink for the past day or so. Pain is nonradiating at this time. In the ED labs were done including a lipase that was elevated. Has chills denies fever CT abdomen showing showing pancreatitis. Signs stable at this time. Initial heart rate noted to be 98 but subsequent rates after or 60s to 70s. Afebrile History of influenza 2 weeks ago. 02/24 Was able to get some sleep last night. Abdominal pain present but much improved from last night. Has some nausea and some retching overnight. Nothing this morning. No other complaints 02/25 Slept well last night. Abdominal pain is continued to improve. It did get a little worse with breakfast this morning on clear liquids and then improved thereafter. No nausea this morning. Does have mild headache. 7 elevated blood pressures while here likely combination of pain and aggressive IV fluids. However he did say he is on atenolol in the past but then went off as his blood pressure was fine. His blood pressure typically is in 130s. 02/26 Abdominal pain overall much improved, does have some irritation when he has his liquid meals. Lipase continues to trend down. Has mild headache and some nausea otherwise no new complaints. Currently on clear liquid diet. Review of Systems: denies fever/chills/vomiting/chest pain/cough/dyspnea/diarrhea. Otherwise see above. - Constitutional Vitals: Vital Signs Temp Pulse Resp BP Pulse Ox 97.9 F 86 18 141/90 97 02/26/19 03:13 02/26/19 03:13 02/26/19 03:13 02/26/19 03:13 02/26/19 03:13 Period Temp Pulse Resp BP Sys/Tracey Pulse Ox Last 24 Hr 97.9 F-99.4 F 86-94 16-20 135-157/82-97 93-98 Intake and Output 02/25/19 02/26/19 02/26/19 21:59 05:59 13:59 Intake Total 9259 059 0292 Output Total 4275 1200 525 Balance -2528 750 475 Weight 111.402 kg Intake & Output: Intake & Output 02/25/19 02/26/19 02/26/19 21:59 05:59 13:59 Intake Total 8422 041 0061 Output Total 4275 1200 525 Balance -2528 -750 475 Weight 111.402 kg Intake: IV 847 1000 Lactated Ringers 1,000 ml @ 400 821 9089 mls/hr IV .Q10H [facility] Rx#: [id number] Oral 900 450 Output: Void Amount 4273 1200 525 Other: Urine Appearance Clear Clear Urine Color Bright Yellow Bright Yellow Urine Odor Normal Normal Exam: General: Alert, Awake, no acute distress, obese Eyes/N/T: EOMI, Head/Neck: neck supple, CV: RRR, No murmurs, Pulm: Clear b/l, no wheezing/rhonchi/rales Abd: soft, mild TTP epigastrium, + BS Ext: no clubbing/cyanosis, trace b/l LE edema Neuro: Alert, no focal deficits, moves all extremities, Skin: warm/dry Medical - PN: Obj Da - Labs CBC & Chem 7: 02/26/19 04:35 02/26/19 04:35 Labs: Abnormal Lab Results 02/26/19 02/26/19 02/26/19 04:35 04:35 04:35 WBC 4.0 L RBC 3.55 L Hgb 8.4 L Hct 26.8 L MCV 75.6 L MCH 23.8 L RDW 22.7 H MPV Gran % Lymph % (Auto) Person % (Auto) 12.5 H Lymph # (Auto) 1.0 L ESR Carbon Dioxide BUN 2 L Creatinine 0.6 L Glucose Calcium 7.6 L Total Bilirubin Direct Bilirubin GGT 112 H AST 38 H Alkaline Phosphatase 135 H Lactate Dehydrogenase Total Protein 5.5 L Albumin 2.1 L Globulin Albumin/Globulin Ratio 0.6 L Amylase Lipase 113 H Ur Specific [place] Urine Ketones U Marijuana (THC) Screen 02/25/19 02/25/19 02/25/19 03:50 03:50 03:50 WBC RBC 4.02 L Hgb 9.6 L Hct 29.8 L MCV 74.3 L MCH 23.8 L RDW 20.6 H MPV 10.6 H Gran % Lymph % (Auto) Person % (Auto) 12.9 H Lymph # (Auto) ESR Carbon Dioxide 20 L BUN 5 L Creatinine Glucose Calcium 7.6 L Total Bilirubin Direct Bilirubin GGT AST Alkaline Phosphatase Lactate Dehydrogenase 254 H Total Protein Albumin 2.7 L Globulin Albumin/Globulin Ratio 0.8 L Amylase Lipase 153 H Ur Specific [place] Urine Ketones U Marijuana (THC) Screen 02/24/19 02/24/19 02/24/19 03:30 03:30 03:00 WBC RBC 4.11 L Hgb 9.7 L Hct 31.0 L MCV 75.4 L MCH 23.6 L RDW 22.7 H MPV Gran % 79.9 H Lymph % (Auto) 9.9 L Person % (Auto) Lymph # (Auto) 0.8 L ESR Carbon Dioxide BUN Creatinine Glucose Calcium 7.4 L Total Bilirubin 1.2 H Direct Bilirubin GGT AST Alkaline Phosphatase Lactate Dehydrogenase 260 H Total Protein Albumin 2.5 L Globulin Albumin/Globulin Ratio 0.7 L Amylase Lipase 251 H Ur Specific [place] 1.057 H Urine Ketones 20 A U Marijuana (THC) Screen 02/24/19 02/23/19 02/23/19 03:00 20:18 18:55 WBC RBC Hgb Hct MCV MCH RDW MPV Gran % Lymph % (Auto) Person % (Auto) Lymph # (Auto) ESR Carbon Dioxide BUN Creatinine Glucose 121 H Calcium 8.2 L Total Bilirubin 1.9 H Direct Bilirubin 0.4 H GGT AST Alkaline Phosphatase Lactate Dehydrogenase Total Protein Albumin Globulin 4.1 H Albumin/Globulin Ratio 0.8 L Amylase 144 H Lipase 454 H Ur Specific [place] Urine Ketones U Marijuana (THC) Screen Suspect positive A 02/23/19 18:55 WBC RBC Hgb 11.6 L Hct 36.8 L MCV 73.9 L MCH 23.2 L RDW 20.7 H MPV Gran % 80.4 H Lymph % (Auto) 10.3 L Person % (Auto) Lymph # (Auto) 0.8 L ESR 17 H Carbon Dioxide BUN Creatinine Glucose Calcium Total Bilirubin Direct Bilirubin GGT AST Alkaline Phosphatase Lactate Dehydrogenase Total Protein Albumin Globulin Albumin/Globulin Ratio Amylase Lipase Ur Specific [place] Urine Ketones U Marijuana (THC) Screen Meds: Medications Acetaminophen (Tylenol) 650 mg PO Q6HP PRN PRN Reason: PAIN/FEVER > 101 Albuterol/Ipratropium (Duoneb) 3 ml NEB Q4HP PRN PRN Reason: Shortness Of Breath Amlodipine Besylate (Norvasc) 5 mg PO DAILY [facility] Last Admin: 02/25/19 08:58 Dose: Not Given Documented by: Diphenhydramine HCl (Benadryl) 25 mg IV Q6HP PRN PRN Reason: Allergic Symptoms Last Admin: 02/26/19 03:27 Dose: 25 mg Documented by: Enalaprilat (Vasotec) 0 mg IV Q2HP PRN PRN Reason: Hypertension Enoxaparin Sodium (Lovenox) 40 mg SQ DAILY [facility] Famotidine (Pepcid) 20 mg IV Q12 [facility] Last Admin: 02/25/19 21:28 Dose: 20 mg Documented by: Fentanyl (Sublimaze) 25 - 50 mcg IV Q2HP PRN PRN Reason: PAIN LEVEL > 6 Last Admin: 02/25/19 16:01 Dose: 50 mcg Documented by: Folic Acid (Folic Acid) 1 mg PO DAILY [facility] Last Admin: 02/25/19 08:58 Dose: Not Given Documented by: Hydromorphone HCl (Dilaudid) 0.5 - 1 mg IV Q2HP PRN PRN Reason: PAIN LEVEL > 6 Last Admin: 02/26/19 07:58 Dose: 0.5 mg Documented by: Hydroxyzine HCl (Atarax) 25 mg PO TIDP PRN PRN Reason: Allergic Symptoms/anxiety Last Admin: 02/25/19 17:45 Dose: 25 mg Documented by: Potassium Chloride 40 meq/ (Dextrose) 520 mls @ 130 mls/hr IV UD PRN PRN Reason: Potassium < 3 Lactated Ringer's (Lactated Ringers) 1,000 mls @ 100 mls/hr IV .Q10H [facility] Last Admin: 02/26/19 07:58 Dose: 100 mls/hr Documented by: Magnesium Sulfate (Magnesium Sulfate) 2 gm in 50 mls @ 50 mls/hr IV UD PRN PRN Reason: Magnesium </= 1.6 Thiamine HCl 100 mg/ Sodium (Chloride) 51 mls @ 50 mls/hr IV DAILY [facility] Last Admin: 02/25/19 08:59 Dose: Not Given Documented by: Labetalol HCl (Trandate) 0 mg IV Q2HP PRN PRN Reason: Hypertension Lorazepam (Ativan) 1 - 4 mg IV Q2-4HP PRN; Protocol PRN Reason: ANXIETY/SEDATION Last Admin: 02/25/19 18:03 Dose: 1 mg Documented by: Ondansetron HCl (Zofran) 4 mg IV Q4HP PRN PRN Reason: Nausea And Vomiting Last Admin: 02/26/19 07:58 Dose: 4 mg Documented by: Potassium Chloride (Kdur) 40 meq PO UD PRN PRN Reason: Potssium is 3-3.5 Potassium Chloride (Kdur) 40 meq PO UD PRN PRN Reason: Potassium < 3 Prochlorperazine (Compazine) 10 mg IV Q6HP PRN PRN Reason: Nausea And Vomiting Promethazine HCl (Phenergan) 12.5 mg [place] Q6HP PRN PRN Reason: Pain Ropinirole HCl (Requip) 0.5 mg PO [facility] Last Admin: 02/25/19 21:28 Dose: 0.5 mg Documented by: Sodium Chloride (Saline Flush) 10 ml IV Q8 [facility] Last Admin: 02/26/19 05:35 Dose: Not Given Documented by: Triamcinolone Acetonide (Kenalog Crm 0.5%) 1 dose TOPICAL BID [facility] Last Admin: 02/25/19 22:44 Dose: Not Given Documented by: Venlafaxine HCl (Effexor Xr) 150 mg PO DAILY [facility] Last Admin: 02/25/19 08:57 Dose: Not Given Documented by: Zolpidem Tartrate (Ambien) 10 mg PO [facility] Last Admin: 02/25/19 21:27 Dose: 10 mg Documented by: Medical - PN: A/P - Time Spent With Patient Total time spent is greater than 50% in coordination of care (as documented) at patient's floor/unit and/or counseling patient: - Narrative A/P Narrative: A: *Acute pancreatitis: improving -h/o cholecystectomy -CT a/p with pancreatitis and possible small area of early necrosis *Alcohol abuse with mild w/d thus far *HTN: *JENNY: Has not been taking his home iron supplementation *Obesity: *GERD: *Depression/anxiety with panic attacks: P: -IVF's d/c, may need lasix eventually -on clears liquid, Full liquid low fat -Pain control, antiemetics -Monitor for signs of deterioration including leukocytosis fevers and other clinical signs of infection, would then need to repeat CAT scan looking for necrosis -switch his home omeprazole to pepcid given class 1b risk for pancreatitis with omeprazole -Alcohol cessation counseling -Restart home iron supplementation when oral intake able -CIWA, prn benzo -started norvasc -ppx: Lovenox full code Medical - PN: Qual - VTE Deep Vein Thrombosis/Pulmonary Embolism Present on Admission: No
[2019-02-26] MEDS ORDERED: LACTATED RINGERS 1,000 ML IV SCH (08:15)
[2019-02-26] MEDS: VENLAFAXINE 150 MG CAP.XL.24H PO SCH (09:15)
[2019-02-26] MEDS: FAMOTIDINE/PF 20 MG/2 ML VIAL IV SCH ×2 (09:15→21:45)
[2019-02-26] MEDS: TRIAMCINOLONE CRM 0.5% TUBE 15GM TOPICAL SCH ×2 (09:15→21:38)
[2019-02-26] MEDS: ENOXAPARIN 40 MG/0.4 ML SYRINGE SQ SCH (09:15)
[2019-02-26] MEDS: FOLIC ACID 1 MG TABLET PO SCH (09:16)
[2019-02-26] MEDS: amLODIPine 5 MG TABLET PO SCH (09:16)
[2019-02-26] MEDS: THIAMINE 100 MG in 0.9 % SODIUM CHLORIDE 50 ML IV SCH (09:37)
[2019-02-26] MEDS: LORazepam 2 MG/ML VIAL IV PRN (10:57)
[2019-02-26] MEDS: rOPINIRole 0.25 MG TABLET PO SCH (21:46)
[2019-02-26] MEDS: ZOLPIDEM 5 MG TABLET PO SCH (22:26)
[2019-02-27] MEDS: LORazepam 2 MG/ML VIAL IV PRN ×4 (02:50→20:57)
[2019-02-27] MEDS: HYDROmorphone 2 MG/ML VIAL IV PRN ×3 (02:55→12:54)
[2019-02-27] MEDS: 0.9 % SODIUM CHLORIDE 10 ML SYRINGE IV SCH ×3 (05:28→20:57)
[2019-02-27 08:34] LABS: Basophils # (Auto) 0 K/mcL (0.0-0.3); Basophils % (Auto) 0.3 % (0.0-2.0); Eosinophils # (Auto) 0.1 K/mcL (0.0-0.7); Eosinophils % (Auto) 2.6 % (0.0-7.0); Granulocytes % (Auto) 62.4 % (38.0-78.0); Hematocrit 27.8 % (41.0-55.0); Hemoglobin 8.7 g/dL (13.5-16.5); Lymphocytes % (Auto) 21.3 % (15.5-49.0); Mean Cell Volume 75.7 fL (80.0-100.0); Mean Corpuscular HGB Conc 31.4 g/dL (31.0-36.0); Mean Platelet Volume 9.5 fL (7.4-10.4); Monocytes # (Auto) 0.6 K/mcL (0.1-0.9); Monocytes % (Auto) 13.4 % (1.0-12.0); Platelet Count 194 K/mcL (140-440); RBC 3.67 M/mcL (4.50-5.90); Red Cell Distribution Width 23.5 % (11.5-14.5); WBC 4.8 K/mcL (4.5-11.0)
[2019-02-27 08:41] LABS: ALT/SGPT 12 U/l (0-40); AST/SGOT 21 U/l (0-37); Albumin 2.3 gm/dL (3.2-5.2); Albumin/Globulin Ratio 0.7 (1.0-2.3); Alkaline Phosphatase 124 U/L (39-117); Bilirubin,Direct 0.2 mg/dL (0.0-0.3); Bilirubin,Total 0.7 mg/dL (0.0-1.0); Blood Urea Nitrogen < 2 mg/dl (6-20); Calcium 7.7 mg/dl (8.6-10.4); Carbon Dioxide 27 mmol/L (22-30); Chloride 103 mmol/L (96-108); Globulin 3.4 gm/dL (2.2-3.7); Glomerular Filtration Rate 110; Glucose 94 mg/dL (70-105); Iron 17 mcg/dl (61-157); Lactate Dehydrogenase 166 U/L (94-250); Lipase 95 U/L (7-60); Magnesium 1.7 mg/dL (1.6-2.5); Phosphorous 3.6 mg/dL (2.7-4.5); Potassium 3.3 mmol/L (3.3-5.1); Sodium 140 mmol/L (133-145); TIBC Calculation 256 ug/dl (228-428); Transferrin % Saturation 6 % (20-50); Triglycerides 68 mg/dl (<150); Unsaturated Iron Binding 239 mcg/dL (112-346); Uric Acid 4.1 mg/dL (2.5-8.0)
[2019-02-27 08:50] LABS: Ferritin 26.8 ng/ml (30-400)
[2019-02-27] MEDS: diphenhydrAMINE 50 MG/ML VIAL IV PRN (08:50)
[2019-02-27] MEDS: ONDANSETRON 4 MG/2 ML VIAL IV PRN ×2 (08:50→19:31)
[2019-02-27 08:57] LABS: Vitamin B12 637.5 pg/ml (232-1245)
[2019-02-27] MEDS: amLODIPine 5 MG TABLET PO SCH (10:22)
[2019-02-27] MEDS: FOLIC ACID 1 MG TABLET PO SCH (10:22)
[2019-02-27] MEDS: THIAMINE 100 MG TABLET PO SCH (10:22)
[2019-02-27] MEDS: VENLAFAXINE 150 MG CAP.XL.24H PO SCH (10:22)
[2019-02-27] MEDS: ENOXAPARIN 40 MG/0.4 ML SYRINGE SQ SCH (10:23)
[2019-02-27] MEDS: TRIAMCINOLONE CRM 0.5% TUBE 15GM TOPICAL SCH ×2 (10:23→21:00)
[2019-02-27] MEDS: FAMOTIDINE/PF 20 MG/2 ML VIAL IV SCH ×2 (10:24→20:48)
[2019-02-27] MEDS: THIAMINE 100 MG in 0.9 % SODIUM CHLORIDE 50 ML IV SCH (11:44)
[2019-02-27] MEDS ORDERED: HYDROmorphone 2 MG/ML VIAL IV PRN (14:28)
[2019-02-27] MEDS ORDERED: HYDROmorphone 2 MG TABLET PO PRN (14:28)
--- NOTE | 2019-02-27 14:32 | Internal Med Progress Note ---
Medical - PN: Subj Patient information: Note initiated : 02/27/19 at 2:29 pm Service Date, if different from initiated Date: [] Patient: Cy Joel a 48 y/o M admitted on 02/24/19 for abd pain, vomiting, diarrhea. Chief Complaint: [] Interval history: Mr. Joel is a 48 year old M 48-year-old male with a history of pancreatitis related to alcohol use presents with 4-day history of nausea vomiting abdominal pain. Patient states last alcohol he believes was . He used to be a heavy drinker but is cut down. He usually has at least 4 bottles of wine a week still. States pain is sharp epigastric. States that had not had any food or drink for the past day or so. Pain is nonradiating at this time. In the ED labs were done including a lipase that was elevated. Has chills denies fever CT abdomen showing showing pancreatitis. Signs stable at this time. Initial heart rate noted to be 98 but subsequent rates after or 60s to 70s. Afebrile History of influenza 2 weeks ago. 02/24 Was able to get some sleep last night. Abdominal pain present but much improved from last night. Has some nausea and some retching overnight. Nothing this morning. No other complaints 02/25 Slept well last night. Abdominal pain is continued to improve. It did get a little worse with breakfast this morning on clear liquids and then improved thereafter. No nausea this morning. Does have mild headache. 7 elevated blood pressures while here likely combination of pain and aggressive IV fluids. However he did say he is on atenolol in the past but then went off as his blood pressure was fine. His blood pressure typically is in 130s. 02/26 Abdominal pain overall much improved, does have some irritation when he has his liquid meals. Lipase continues to trend down. Has mild headache and some nausea otherwise no new complaints. Currently on clear liquid diet. 02/27 Pt seen examined, tolerated po meals today still has some discomfort after meals, labs stable The last time I discharged this gentleman he came back to the ER the same night with his mother complaining of abdominal pain, after tolerating PO diet well. I would watch him one more day, try oral meds for pain control and see how he does. low iron stores reivewed, outpatient GI follow up needed. Pertinent ROS: Denies headache, dizziness Denies chest pain, palpitations Denies cough or shortness of breath some abdominal pain, improving, mild nausea, no vomiting. - Constitutional Vitals: Vital Signs Temp Pulse Resp BP Pulse Ox 98.4 F 90 16 146/95 100 02/27/19 12:00 02/27/19 12:00 02/27/19 12:00 02/27/19 12:00 02/27/19 12:00 Period Temp Pulse Resp BP Sys/Tracey Pulse Ox Last 24 Hr 98.4 F-99.2 F 79-99 16-20 135-154/87-100 93-100 Intake and Output 02/27/19 02/27/19 02/27/19 05:59 13:59 21:59 Intake Total 600 Output Total 675 Balance -75 Weight 248 lb 4.8 oz 248 lb 4.8 oz Patient Weight 02/28/19 05:59 Weight 248 lb 4.8 oz Intake & Output: Intake & Output 02/27/19 02/27/19 02/27/19 05:59 13:59 21:59 Intake Total 600 Output Total 675 Balance -75 Weight 248 lb 4.8 oz 248 lb 4.8 oz Intake: Oral 600 Output: Void Amount 675 Other: Urine Appearance Clear Urine Color Pale Exam: Constitutional; Afebrile, cooperative, alert, not in distress. Respiratory system: Air Entry equal on both sides, No crackles or wheezing, no rhonchi. CVS- Rate rhythm regular, S1,S2 heard, no gallop, no rub. 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 Medical - PN: Obj Da - Labs CBC & Chem 7: 02/27/19 05:36 02/27/19 05:36 Labs: Abnormal Lab Results 02/27/19 02/27/19 02/26/19 05:36 05:36 04:35 WBC RBC 3.67 L Hgb 8.7 L Hct 27.8 L MCV 75.7 L MCH 23.8 L RDW 23.5 H MPV Gregory % (Auto) 13.4 H Lymph # (Auto) 1.0 L Carbon Dioxide BUN < 2 L 2 L Creatinine 0.6 L Calcium 7.7 L 7.6 L Iron 17 L Transferrin % Sat 6 L Ferritin 26.8 L GGT 108 H 112 H AST 38 H Alkaline Phosphatase 124 H 135 H Lactate Dehydrogenase Total Protein 5.7 L 5.5 L Albumin 2.3 L 2.1 L Albumin/Globulin Ratio 0.7 L 0.6 L Lipase 95 H 02/26/19 02/26/19 02/25/19 04:35 04:35 03:50 WBC 4.0 L RBC 3.55 L Hgb 8.4 L Hct 26.8 L MCV 75.6 L MCH 23.8 L RDW 22.7 H MPV Gregory % (Auto) 12.5 H Lymph # (Auto) 1.0 L Carbon Dioxide 20 L BUN 5 L Creatinine Calcium 7.6 L Iron Transferrin % Sat Ferritin GGT AST Alkaline Phosphatase Lactate Dehydrogenase 254 H Total Protein Albumin 2.7 L Albumin/Globulin Ratio 0.8 L Lipase 113 H 02/25/19 02/25/19 03:50 03:50 WBC RBC 4.02 L Hgb 9.6 L Hct 29.8 L MCV 74.3 L MCH 23.8 L RDW 20.6 H MPV 10.6 H Gregory % (Auto) 12.9 H Lymph # (Auto) Carbon Dioxide BUN Creatinine Calcium Iron Transferrin % Sat Ferritin GGT AST Alkaline Phosphatase Lactate Dehydrogenase Total Protein Albumin Albumin/Globulin Ratio Lipase 153 H Meds: Medications Acetaminophen (Tylenol) 1,000 mg PO TID [facility] Albuterol/Ipratropium (Duoneb) 3 ml NEB Q4HP PRN PRN Reason: Shortness Of Breath Amlodipine Besylate (Norvasc) 5 mg PO DAILY [facility] Last Admin: 02/27/19 10:22 Dose: 5 mg Documented by: Diphenhydramine HCl (Benadryl) 25 mg IV Q6HP PRN PRN Reason: Allergic Symptoms Last Admin: 02/27/19 08:50 Dose: 25 mg Documented by: Enalaprilat (Vasotec) 0 mg IV Q2HP PRN PRN Reason: Hypertension Enoxaparin Sodium (Lovenox) 40 mg SQ DAILY [facility] Last Admin: 02/27/19 10:23 Dose: 40 mg Documented by: Famotidine (Pepcid) 20 mg IV Q12 [facility] Last Admin: 02/27/19 10:24 Dose: 20 mg Documented by: Folic Acid (Folic Acid) 1 mg PO DAILY [facility] Last Admin: 02/27/19 10:22 Dose: 1 mg Documented by: Hydromorphone HCl (Dilaudid) 0.5 - 1 mg IV Q4HP PRN PRN Reason: PAIN LEVEL > 6 Hydromorphone HCl (Dilaudid) 2 mg PO Q4HP PRN PRN Reason: pain not responding to apap Hydroxyzine HCl (Atarax) 25 mg PO TIDP PRN PRN Reason: Allergic Symptoms/anxiety Last Admin: 02/25/19 17:45 Dose: 25 mg Documented by: Potassium Chloride 40 meq/ (Dextrose) 520 mls @ 130 mls/hr IV UD PRN PRN Reason: Potassium < 3 Magnesium Sulfate (Magnesium Sulfate) 2 gm in 50 mls @ 50 mls/hr IV UD PRN PRN Reason: Magnesium </= 1.6 Labetalol HCl (Trandate) 0 mg IV Q2HP PRN PRN Reason: Hypertension Lorazepam (Ativan) 1 - 4 mg IV Q2-4HP PRN; Protocol PRN Reason: ANXIETY/SEDATION Last Admin: 02/27/19 02:50 Dose: 1 mg Documented by: Ondansetron HCl (Zofran) 4 mg IV Q4HP PRN PRN Reason: Nausea And Vomiting Last Admin: 02/27/19 08:50 Dose: 4 mg Documented by: Potassium Chloride (Kdur) 40 meq PO UD PRN PRN Reason: Potssium is 3-3.5 Potassium Chloride (Kdur) 40 meq PO UD PRN PRN Reason: Potassium < 3 Prochlorperazine (Compazine) 10 mg IV Q6HP PRN PRN Reason: Nausea And Vomiting Promethazine HCl (Phenergan) 12.5 mg FL Q6HP PRN PRN Reason: Pain Ropinirole HCl (Requip) 0.5 mg PO HS [facility] Last Admin: 02/26/19 21:46 Dose: 0.5 mg Documented by: Sodium Chloride (Saline Flush) 10 ml IV Q8 [facility] Last Admin: 02/27/19 12:59 Dose: 10 ml Documented by: Thiamine HCl (Vitamin B1) 100 mg PO DAILY [facility] Last Admin: 02/27/19 10:22 Dose: 100 mg Documented by: Triamcinolone Acetonide (Kenalog Crm 0.5%) 1 dose TOPICAL BID [facility] Last Admin: 02/27/19 10:23 Dose: 1 dose Documented by: Venlafaxine HCl (Effexor Xr) 150 mg PO DAILY [facility] Last Admin: 02/27/19 10:22 Dose: 150 mg Documented by: Zolpidem Tartrate (Ambien) 10 mg PO HS [facility] Last Admin: 02/26/19 22:26 Dose: 10 mg Documented by: Medical - PN: A/P - Time Spent With Patient Total time spent is greater than 50% in coordination of care (as documented) at patient's floor/unit and/or counseling patient: - Narrative A/P Narrative: A: *Acute pancreatitis: improving -h/o cholecystectomy -CT a/p with pancreatitis and possible small area of early necrosis *Alcohol abuse with mild w/d thus far *HTN: *JENNY: Has not been taking his home iron supplementation *Obesity: *GERD: *Depression/anxiety with panic attacks: P: -IVF's d/c, -on low fat diet -Pain control, antiemetics, trya oral pain meds, d/c IV fentayl, [facility] ap[facility] -switch his home omeprazole to pepcid given class 1b risk for pancreatitis with omeprazole -Alcohol cessation counseling, outpatient addiction referral done by his PCP -Restart home iron supplementation when oral intake able -CIWA, prn benzo -started norvasc -ppx: Lovenox full code Medical - PN: Qual - VTE Deep Vein Thrombosis/Pulmonary Embolism Present on Admission: No
[2019-02-27] MEDS: ACETAMINOPHEN 500 MG TABLET PO SCH ×2 (15:10→20:48)
[2019-02-27] MEDS: FERROUS SULFATE 325 MG TABLET PO SCH (15:11)
[2019-02-27] MEDS ORDERED: POLYETHYLENE GLYCOL 3350 17 GM PACKET PO ONE (16:45)
[2019-02-27] MEDS: DOCUSATE SODIUM 100 MG CAPSULE PO SCH (20:48)
[2019-02-27] MEDS: rOPINIRole 0.25 MG TABLET PO SCH (20:48)
[2019-02-27] MEDS: ZOLPIDEM 5 MG TABLET PO SCH (22:12)
[2019-02-28 01:36] LABS: Cannabinoid Confirmation POSITIVE (N)
[2019-02-28 05:55] LABS: Basophils # (Auto) 0 K/mcL (0.0-0.3); Basophils % (Auto) 0.4 % (0.0-2.0); Eosinophils # (Auto) 0.1 K/mcL (0.0-0.7); Eosinophils % (Auto) 2.2 % (0.0-7.0); Granulocytes % (Auto) 61.4 % (38.0-78.0); Hematocrit 28.1 % (41.0-55.0); Hemoglobin 8.8 g/dL (13.5-16.5); Lymphocytes % (Auto) 22.2 % (15.5-49.0); Mean Cell Volume 76.3 fL (80.0-100.0); Mean Corpuscular HGB Conc 31.4 g/dL (31.0-36.0); Mean Platelet Volume 9.5 fL (7.4-10.4); Monocytes # (Auto) 0.6 K/mcL (0.1-0.9); Monocytes % (Auto) 13.8 % (1.0-12.0); Platelet Count 211 K/mcL (140-440); RBC 3.68 M/mcL (4.50-5.90); Red Cell Distribution Width 23.7 % (11.5-14.5); WBC 4.5 K/mcL (4.5-11.0)
[2019-02-28 06:09] LABS: ALT/SGPT 9 U/l (0-40); AST/SGOT 14 U/l (0-37); Albumin 2.3 gm/dL (3.2-5.2); Albumin/Globulin Ratio 0.6 (1.0-2.3); Alkaline Phosphatase 110 U/L (39-117); Bilirubin,Direct 0.2 mg/dL (0.0-0.3); Bilirubin,Total 0.6 mg/dL (0.0-1.0); Blood Urea Nitrogen 3 mg/dl (6-20); Calcium 8.1 mg/dl (8.6-10.4); Carbon Dioxide 29 mmol/L (22-30); Chloride 101 mmol/L (96-108); Globulin 3.6 gm/dL (2.2-3.7); Glomerular Filtration Rate 104; Glucose 101 mg/dL (70-105); Lactate Dehydrogenase 154 U/L (94-250); Magnesium 1.9 mg/dL (1.6-2.5); Phosphorous 3.5 mg/dL (2.7-4.5); Potassium 3.2 mmol/L (3.3-5.1); Sodium 140 mmol/L (133-145); Triglycerides 76 mg/dl (<150); Uric Acid 4.3 mg/dL (2.5-8.0)
[2019-02-28] MEDS ORDERED: POTASSIUM CHLORIDE 20 MEQ PACKET PO ONE (07:43)
[2019-02-28] MEDS: amLODIPine 5 MG TABLET PO SCH (08:14)
[2019-02-28] MEDS: FERROUS SULFATE 325 MG TABLET PO SCH (08:14)
[2019-02-28] MEDS: FOLIC ACID 1 MG TABLET PO SCH (08:14)
[2019-02-28] MEDS: ENOXAPARIN 40 MG/0.4 ML SYRINGE SQ SCH (08:14)
[2019-02-28] MEDS: THIAMINE 100 MG TABLET PO SCH (08:14)
[2019-02-28] MEDS: DOCUSATE SODIUM 100 MG CAPSULE PO SCH (08:14)
[2019-02-28] MEDS: VENLAFAXINE 150 MG CAP.XL.24H PO SCH (08:14)
[2019-02-28] MEDS: ACETAMINOPHEN 500 MG TABLET PO SCH (08:16)
[2019-02-28] MEDS: 0.9 % SODIUM CHLORIDE 10 ML SYRINGE IV SCH (08:18)
[2019-02-28] MEDS: TRIAMCINOLONE CRM 0.5% TUBE 15GM TOPICAL SCH (08:19)
[2019-02-28] MEDS: FAMOTIDINE/PF 20 MG/2 ML VIAL IV SCH (08:19)
--- NOTE | 2019-02-28 09:14 | Discharge Summary ---
Medical - DS: Prov Patient information: Note initiated : 02/28/19 at 9:10 am Service Date, if different from initiated Date: [] Patient: Cy Joel 48 y/o M admitted on 02/24/19 for abd pain, vomiting, diarrhea. Chief Complaint: [] Date of admission: 02/24/19 00:49 Discharge date: 02/28/19 Primary care physician: Kee Kaufman Consults: 02/23/19 Consult to Physician [CONS] Stat Comment: Consulting Provider: Jack Messina Reason For Exam: Physician to Consult Discharging clinician: Jaylen Decker Medical - DS: Meds - Discharge Medications Prescriptions: HYDROmorphone [Dilaudid] 2 mg PO Q4HP PRN #20 tab PRN Reason: Pain Active and Home Medications: Home Medications ondansetron HCl 4 mg tablet 4 mg PO BID-TID PRN #30 tab 08/18/18 [Rx Confirmed 02/24/19 Last Taken 02/22/19 11:00] hydroxyzine HCl 50 mg tablet 50 mg PO BID PRN #60 tab 11/04/18 [Rx Confirmed 02/24/19 Last Taken 02/23/19 11:00] ropinirole 0.5 mg tablet 0.5 mg PO QHS #30 tab 11/16/18 [Rx Confirmed 02/24/19 Last Taken 02/22/19 23:00] Venlafaxine HCl [Venlafaxine HCl ER] 150 mg PO DAILY 11/27/18 [History Confirmed 02/24/19 Last Taken 02/22/19 08:00] Omeprazole 20 mg PO DAILY #90 tablet. 11/29/18 [Rx Confirmed 02/24/19 Last Taken 02/15/19 08:00] triamcinolone acetonide 0.5 % topical cream 1 applic TOPICAL BID #454 g 11/29/18 [Rx Confirmed 02/24/19 Last Taken 02/22/19 15:00] Docusate Sodium [Colace] 100 mg PO DAILY 02/23/19 [History Confirmed 02/24/19 Last Taken 02/22/19 08:00] zolpidem 10 mg tablet 10 mg PO HS #30 tab 02/28/19 [Rx Last Taken Unknown] Medical - DS: Hosp Hospital course: Mr. Joel is a 48 year old M 48-year-old male with a history of pancreatitis related to alcohol use presents with 4-day history of nausea vomiting abdominal pain. Patient states last alcohol he believes was . He used to be a heavy drinker but is cut down. He usually has at least 4 bottles of wine a week still. States pain is sharp epigastric. States that had not had any food or drink for the past day or so. Pain is nonradiating at this time. In the ED labs were done including a lipase that was elevated. Has chills denies fever CT abdomen showing showing pancreatitis. Signs stable at this time. Initial heart rate noted to be 98 but subsequent rates after or 60s to 70s. Afebrile History of influenza 2 weeks ago. 02/24 Was able to get some sleep last night. Abdominal pain present but much improved from last night. Has some nausea and some retching overnight. Nothing this morning. No other complaints 02/25 Slept well last night. Abdominal pain is continued to improve. It did get a little worse with breakfast this morning on clear liquids and then improved thereafter. No nausea this morning. Does have mild headache. 7 elevated blood pressures while here likely combination of pain and aggressive IV fluids. However he did say he is on atenolol in the past but then went off as his blood pressure was fine. His blood pressure typically is in 130s. 02/26 Abdominal pain overall much improved, does have some irritation when he has his liquid meals. Lipase continues to trend down. Has mild headache and some nausea otherwise no new complaints. Currently on clear liquid diet. 02/27 Pt seen examined, tolerated po meals today still has some discomfort after meals, labs stable The last time I discharged this gentleman he came back to the ER the same night with his mother complaining of abdominal pain, after tolerating PO diet well. I would watch him one more day, try oral meds for pain control and see how he does. low iron stores reivewed, outpatient GI follow up needed. 02/28 Patient seen and examined, no acute complaints or concerns, do not need much pain medications over the last 24 hours. Was enjoying his breakfast this morning. stable for discharge No changes made to his chronic home medication list. 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 Patient was treated medically, responded well to treatment. At the time of discharge patient is able to tolerate solid foods for more than 24 hours and not required much pain medications. He does have iron deficiency anemia for which I have advised him to follow-up with a GI specialist I have also recommended and will make a referral for an criminal research specialist. No changes have been made to his chronic home medication list Discharge diagnosis: Alcoholic pancreatitis - Time Spent with Patient Total time spent providing and/or coordinating discharge services: Less than 30 minutes Medical - DS: Exam - Constitutional Vitals: Vital Signs Temp Pulse Resp BP BP Pulse Ox 02/28/19 07:43 98.5 F 77 16 147/90 97 02/28/19 03:30 98.4 F 76 16 147/95 96 02/27/19 23:55 98.5 F 78 20 142/88 95 02/27/19 21:40 140/95 02/27/19 19:15 98.7 F 85 16 154/93 99 02/27/19 15:22 98.9 F 90 16 155/97 98 02/27/19 12:00 98.4 F 90 16 146/95 100 Intake and Output 02/27/19 02/28/19 02/28/19 21:59 05:59 13:59 Intake Total 600 200 Balance 600 200 Intake: Oral 600 200 Other: Meal Dinner Percent of Meal Consumed 75% Feeding Ability Independent Urine Appearance Clear Urine Color Pale # Voids 1 1 Weight 249 lb 14.4 oz Additional comments: Constitutional; Afebrile, cooperative, alert, not in distress. Respiratory system: Air Entry equal on both sides, No crackles or wheezing, no rhonchi. CVS- Rate rhythm regular, S1,S2 heard, no gallop, no rub. 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 Medical - DS: Data Labs on day of discharge: Labs from last 24 hours 02/28/19 02/28/19 02/24/19 04:13 04:13 03:00 WBC 4.5 RBC 3.68 L Hgb 8.8 L Hct 28.1 L MCV 76.3 L MCH 23.9 L MCHC 31.4 RDW 23.7 H Plt Count 211 MPV 9.5 Gran % 61.4 Lymph % (Auto) 22.2 [place] % (Auto) 13.8 H Eos % (Auto) 2.2 Baso % (Auto) 0.4 Gran # 2.8 Lymph # (Auto) 1.0 L [place] # (Auto) 0.6 Eos # (Auto) 0.1 Baso # (Auto) 0 Sodium 140 Potassium 3.2 L Chloride 101 Carbon Dioxide 29 Anion Gap 10.0 BUN 3 L Creatinine 0.8 GFR Calculation 104 Glucose 101 Uric Acid 4.3 Calcium 8.1 L Phosphorus 3.5 Magnesium 1.9 Total Bilirubin 0.6 Direct Bilirubin 0.2 GGT 97 H AST 14 ALT 9 Alkaline Phosphatase 110 Lactate Dehydrogenase 154 Total Protein 5.9 Albumin 2.3 L Globulin 3.6 Albumin/Globulin Ratio 0.6 L Triglycerides 76 U Cannabinoids Confirm Positive Medical - DS: A/P - Patient/Caregiver Discharge Instructions Activity: increase activity as tolerated Diet: Regular Diet Additional Instructions: Please avoid consumption of alcohol If abdominal pain worsens, fever develops or you have any other acute concerns please go back to the emergency room Take Tylenol extra strength 2 tablets 3 times a day for at least a week this will help control the pain symptoms along with the oral Dilaudid Follow-up with your GI specialist, in 2 to 4 weeks for further evaluation of your low iron. Take iron supplement on a daily basis Follow-up with the criminal research specialist in 1 to 2 weeks I am hoping that this will help you stop the use of alcohol Other Amb Orders: Discharge Referrals Location: None Selected - Follow up Plan Follow up with: Kee Kaufman DO [Primary Care Provider] - Jyoti Rodgers DO [Physician] - Kee Spence MD [Physician] - Disposition: Home, Self-Care Prognosis: Good Rehab Potential: Good I certify that the patient requires SNF services: No Overall status at discharge: patient is progressing back to baseline Medical - DS: Qual - VTE Deep Vein Thrombosis/Pulmonary Embolism Present on Admission: No
== END 2019-02-28 11:20 | disposition home or self-care (01) | DRG 439 ==
LOC: ED 18:32 → ICU 02-24 00:49 → MEDSUR 02-25 14:15
PROVIDERS: ADMIT Internal Medicine; ATTEND Internal Medicine